=== PATIENT | male | born 1980 | race Caucasian/White ===

== ENCOUNTER 2016-06-30 22:52 | Emergency (ER) | payer OTHER ==
[~2016-06-30] VITALS: Ht 182.9 cm; Wt 79.4 kg
[~2016-06-30 22:52] MED LIST: AUGMENTIN 875-1 EACH PO; IBUPROFEN800 M1 PO; LAMICTAL200 M1 PO; MEDROL4 M2 PO; PERCOCET 5-3251 EACH PO
[2016-06-30 22:57] VITALS: BP 142/93
--- NOTE | 2016-06-30 23:38 | ED NECK/BACK PAIN COMPLAINT ---
History of Present Illness General Chief Complaint: Neck/Upper Back Pain/Injury Stated Complaint: NECK PAIN RADIATING INTO R ARM, CHRONIC ISSUE Source: patient, old records Exam Limitations: no limitations Vital Signs & Intake/Output Vital Signs & Intake/Output Vital Signs Date Time Temp Pulse Resp B/P Pulse O2 O2 Flow FiO2 Ox Delivery Rate 06/30 2257 98.2 69 18 142/93 98 Room Air ED Intake and Output 07/01 0000 06/30 1200 Intake Total Output Total Balance Patient 175 lb Weight Allergies Coded Allergies: No Known Allergies (06/30/16) Reconcile Medications Lamotrigine (Lamictal) 200 MG TABLET 1 TAB PO DAILY SZ (Reported) Methylprednisolone. (Medrol) 4 MG TAB.DS.PK 1 DP PO AD INFLAMMATION 6 on day 1 then reduce by one tablet daily until gone Oxycodone HCl 5 MG TABLET 1 TAB PO TID PRN PAIN Oxycodone HCl/Acetaminophen (Percocet 5-325 MG Tablet) 5 MG-325 MG TABLET 1 TAB PO Q4-6 PRN PAIN Triage Note: PT TO TRIAGE WITH C/O NECK PAIN RADIATING TO R ARM 01/30, PAIN IS CHRONIC, HX OF DISC HERNIATION. NO OTHER COMPLAINTS. VSS. Triage Nurses Notes Reviewed? yes HPI: 36-year-old male with right-sided neck pain and radicular symptoms into the right arm, no numbness no weakness. Pain is severe, no modifying factors. He has history of herniated disc, had an MRI last month, had a Medrol Dosepak and a epidural steroid injection by pain management and also seen by an orthopedist, also seen here. He is requesting medication for pain as he believes he aggravated his neck pain shoveling snow today. There was no recent trauma. He has tried ibuprofen without relief. (POOJA LIN) Past History Travel History Traveled to [place] past 21 day No Medical History Any Pertinent Medical History? see below for history Neurological: seizure EENT: NONE Cardiovascular: NONE Respiratory: NONE Gastrointestinal: NONE Hepatic: NONE Renal: NONE Musculoskeletal: disk herniation Psychiatric: NONE Endocrine: NONE Blood Disorders: NONE Surgical History Surgical History: none Psychosocial History What is your primary language [place] Tobacco Use: Never used Family History Hx Contributory? No (POOJA LIN) Review of Systems Review of Systems Constitutional: Reports: see HPI. Eyes: Reports: no symptoms. Ears, Nose, Throat, Mouth: Reports: no symptoms. Respiratory: Reports: no symptoms. Cardiovascular: Reports: no symptoms. Gastrointestinal/Abdominal: Reports: no symptoms. Musculoskeletal: Reports: see HPI. Skin: Reports: no symptoms. Neurological/Psychological: Reports: no symptoms. All Other Systems: Reviewed and Negative (POOJA LIN) Physical Exam Physical Exam General Appearance: well developed/nourished Neck: normal inspection, supple, full range of motion, normal alignment, paraspinous muscle tender, tender lateral, no midline tenderness Comments: Well-developed well-nourished no apparent distress. HEENT: Atraumatic, extraocular motion intact Neck: Supple, no lymphadenopathy Back: Nontender Respiratory: No respiratory distress Extremities: No edema, full range of motion Neuro: Alert and oriented x3. Strength at the bilateral upper extremities and lower extremities are normal, sensation intact, gait is within normal limits Psych: Mood affect normal, normal memory normal judgment. Skin: Warm and dry, no rash on exposed skin (POOJA LIN) Progress Differential Diagnosis: AAA, aortic dissection, C spine injury, carotid dissection, cauda equina syn, herniated disc, myofascial strain, pyelo/UTI, sciatica, spinal cord inj, thoracic outlet syn, T/L spine injury, ureterolithiasis Plan of Care: Patient declined Toradol, did not want muscle relaxers, requesting Percocet 10 mg. Due to our policy on prescription narcotics, I explained to him that I can give him 5 mg tablets, 10 of them to last him until he can see his orthopedist or pain management doctor this week. He understands (POOJA LIN) Departure Departure Disposition: HOME OR SELF CARE Condition: Stable Clinical Impression Primary Impression: Cervical radiculopathy due to intervertebral disc disorder Referrals: PATIENT HAS NO PRIMARY CARE DR (PCP/Family) Additional Instructions: follow up with your orthopedist or pain managment doctor this week. take oxycodone as needed for pain. Departure Forms: Customer Survey General Discharge Information Prescriptions: Current Visit Scripts Oxycodone HCl 1 TAB PO TID PRN PAIN #10 TAB (POOJA LIN) PA/OPERATIONS ASST Co-Sign Statement Statement: ED Attending supervision documentation- [] I saw and evaluated the patient. I have also reviewed all the pertinent lab results and diagnostic results. I agree with the findings and the plan of care as documented in the PA's/OPERATIONS ASST's documentation. [x] I have reviewed the ED Record and agree with the PA's/OPERATIONS ASST's documentation. [] Additions or exceptions (if any) to the PAs/OPERATIONS ASST's note and plan are summarized below: [] (CORNEL GARDNER,FAISAL Vanessa)
[2016-06-30] MEDS ORDERED: OXYCODONE HCL5 M1 PO (23:40)
== END 2016-06-30 23:37 ==
LOC: ERH 22:52
DX: M50.10 Cervical disc disorder with radiculopathy, unspecified cervical region (principal)